=== PATIENT | female | born 1990 | race Hispanic/Latino ===

== ENCOUNTER 2023-10-11 06:38 | Inpatient (IN) | payer MEDICAID, OTHER ==
[2023-10-11 08:24] VITALS: BMI 40.3
[2023-10-11] MEDS ORDERED: hydrALAZINE 20 MG/ML VIAL SLOW IVP PRN ×2 (08:26→14:27)
[2023-10-11] MEDS ORDERED: Tranexamic Acid 1,000 MG/10 ML VIAL IVP PRN (08:26)
[2023-10-11] MEDS ORDERED: Ibuprofen 800 MG TAB PO PRN (08:26)
[2023-10-11] MEDS ORDERED: Methylergonovine 0.2 MG/ML VIAL IM PRN (08:26)
[2023-10-11] MEDS ORDERED: Lactated Ringer's 1,000 ML IV SCH (08:26)
[2023-10-11] MEDS ORDERED: Diphenoxylate HCl/Atropine Tablet PO PRN (08:26)
[2023-10-11] MEDS ORDERED: fentaNYL 50 mcg/mL 1 mL Vial SLOW IVP PRN (08:26)
[2023-10-11] MEDS ORDERED: HYDROcodone/Acetaminophen 5/325 mg Tablet PO PRN ×2 (08:26→14:27)
[2023-10-11] MEDS ORDERED: Promethazine HCl 25 MG/ML VIAL IM PRN ×2 (08:26→14:27)
[2023-10-11] MEDS ORDERED: Carboprost 250 MCG/ML AMP IM PRN (08:26)
[2023-10-11] MEDS ORDERED: Misoprostol 200 MCG TAB PR PRN (08:26)
[2023-10-11] MEDS ORDERED: Lidocaine 1% (PF) 30 ML VIAL SC PRN (08:26)
[2023-10-11] MEDS ORDERED: Ondansetron PF 4 MG/2 ML Vial IVP PRN ×2 (08:26→14:27)
[2023-10-11] MEDS ORDERED: Oxytocin 30 units/NS 500 ML 500 ML IV SCH ×3 (08:26)
[2023-10-11] MEDS ORDERED: Acetaminophen 500 MG TAB PO PRN (08:26)
[2023-10-11 09:00] LABS: Hematocrit 39.3 % (34.9-44.5); Hemoglobin 13.2 g/dL (12.0-15.5); Mean Corpuscular HGB CONC 33.6 g/dL (32.0-36.0); Mean Corpuscular Hemoglobin 28.6 pg (27.0-33.0); Mean Corpuscular Volume 85.1 fl (81.6-98.3); Mean Platelet Volume 11.4 fl (7.4-10.4); Platelet Count 217 10x3/uL (150-450); RBC Distribution Width 16.6 % (11.5-14.5); Red Blood Cell (RBC) Count 4.62 10x6/uL (3.90-5.03); White Blood Cell (WBC) Count 9.3 10x3/uL (3.5-10.5)
[2023-10-11 09:14] LABS: Syphilis Antibody Nonreactive (Nonreactive)
[2023-10-11 09:16] LABS: HBSAg Index 0.22 S/CO (0-0.99); Hep B Surf Ag - L&D Non-Reactive S/CO (NonReactive)
[2023-10-11] MEDS ORDERED: Lidocaine 1% (PF) 30 ML VIAL ONE (11:30)
[2023-10-11] MEDS ORDERED: Milk Of Magnesia 30 ML UDCUP PO PRN (14:27)
[2023-10-11] MEDS ORDERED: diphenhydrAMINE 25 MG CAP PO PRN (14:27)
[2023-10-11] MEDS ORDERED: Lanolin Ointment 7 GM TUBE TOP PRN (14:27)
[2023-10-11] MEDS ORDERED: Benzocaine-Menthol 82.5 ML CAN TOP PRN (14:27)
[2023-10-11] MEDS ORDERED: Boostrix 0.5 ML (Tdap) VIAL (>/=7 yrs of age) IM ONE (14:27)
[2023-10-11] MEDS ORDERED: Bisacodyl 10 MG SUPP PR PRN (14:27)
[2023-10-11] MEDS: Ibuprofen 800 MG TAB PO SCH (16:26)
[2023-10-11] MEDS: Ferrous Sulfate 325 MG TAB PO SCH (16:27)
[2023-10-11] MEDS: Docusate 100 MG CAP PO SCH (21:07)
[2023-10-12] MEDS ORDERED: Ibuprofen 800 MG TAB PO SCH (00:01)
[2023-10-12] MEDS: Ibuprofen 800 MG TAB PO SCH (01:23)
[2023-10-12 07:26] VITALS: TEMP 98
[2023-10-12] MEDS: Prenatal Vitamin 1 TAB PO SCH (09:06)
[2023-10-12 11:01] VITALS: BP 112/61
== END 2023-10-12 15:25 | disposition home or self-care (01) | DRG 807 ==
LOC: CSHLD 06:38 → CSHPP 14:03
PROVIDERS: ADMIT Family Medicine; ATTEND Family Medicine
PROC: 10E0XZZ Delivery of Products of Conception, External Approach (ICD-10-PCS; principal; 2023-10-11)
PROC: 0KQM0ZZ Repair Perineum Muscle, Open Approach (ICD-10-PCS; 2023-10-11)
PROC: 10907ZC Drainage of Amniotic Fluid, Therapeutic from Products of Conception, Via Natural or Artificial Opening (ICD-10-PCS; 2023-10-11)
DX: O48.0 Post-term pregnancy (principal); Z37.0 Single live birth; Z3A.40 40 weeks gestation of pregnancy; O70.1 Second degree perineal laceration during delivery; Z79.82 Long term (current) use of aspirin
CPT/HCPCS: 36415; 85027; 86780; 86850; 86900; 86901; 87340

== ENCOUNTER 2025-07-24 05:26 | Inpatient (IN) | payer MEDICAID ==
[2025-07-24 07:07] VITALS: BMI 38.2
[2025-07-24] MEDS ORDERED: Ibuprofen 800 MG TAB PO PRN (07:25)
[2025-07-24] MEDS ORDERED: hydrALAZINE 20 MG/ML VIAL SLOW IVP PRN ×2 (07:25→14:36)
[2025-07-24] MEDS ORDERED: Oxytocin 30 units/NS 500 ML 500 ML IV SCH (07:25)
[2025-07-24] MEDS ORDERED: Tranexamic Acid 1,000 MG/10 ML VIAL IVP PRN (07:25)
[2025-07-24] MEDS ORDERED: Diphenoxylate HCl/Atropine Tablet PO PRN (07:25)
[2025-07-24] MEDS ORDERED: Acetaminophen 500 MG TAB PO PRN (07:25)
[2025-07-24] MEDS ORDERED: Lidocaine 1% (PF) 30 ML VIAL SC PRN (07:25)
[2025-07-24] MEDS ORDERED: Ondansetron PF 4 MG/2 ML Vial IVP PRN ×2 (07:25→14:36)
[2025-07-24] MEDS ORDERED: HYDROcodone/Acetaminophen 5/325 mg Tablet PO PRN ×2 (07:25→14:36)
[2025-07-24] MEDS ORDERED: Carboprost 250 MCG/ML AMP IM PRN (07:25)
[2025-07-24] MEDS ORDERED: Methylergonovine 0.2 MG/ML VIAL IM PRN (07:25)
[2025-07-24] MEDS: Oxytocin 30 units/NS 500 ML 500 ML IV SCH (07:48)
[2025-07-24] MEDS: Penicillin G Potassium 5 MILL.UNITS VIAL ONE (07:48)
[2025-07-24] MEDS ORDERED: Penicillin G Potassium 5 MILL.UNITS in Sodium Chloride 0.9% 100 ML IVPB SCH (08:15)
[2025-07-24 08:20] LABS: Hematocrit 42.3 % (34.9-44.5); Hemoglobin 13.9 g/dL (12.0-15.5); Mean Corpuscular Hemoglobin 28.7 pg (27.0-33.0); Mean Corpuscular Volume 87.2 fL (81.6-98.3); Platelet Count 167 10x3/uL (150-450); Red Blood Cell (RBC) Count 4.85 10x6/uL (3.90-5.03); White Blood Cell (WBC) Count 7.54 10x3/uL (3.5-10.5)
[2025-07-24 08:51] LABS: Syphilis Antibody Index 0.06 S/CO (<1.00 Non-Reactive)
[2025-07-24 08:56] LABS: Hep B Surf Ag - L&D Non-Reactive S/CO (NonReactive)
[2025-07-24] MEDS: Penicillin G 2.5 MILL.units 2.5 MILL.UNITS in Premix 1 BAG IVPB SCH (11:34)
[2025-07-24] MEDS: Lidocaine 1% (PF) 30 ML VIAL SC PRN (11:52)
[2025-07-24] MEDS ORDERED: Preparation H Ointment 28 GM TUBE PR PRN (14:36)
[2025-07-24] MEDS ORDERED: Lanolin Ointment 7 GM TUBE TOP PRN (14:36)
[2025-07-24] MEDS ORDERED: diphenhydrAMINE 25 MG CAP PO PRN (14:36)
[2025-07-24] MEDS ORDERED: Bisacodyl 10 MG SUPP PR PRN (14:36)
[2025-07-24] MEDS ORDERED: Milk Of Magnesia 30 ML UDCUP PO PRN (14:36)
[2025-07-24] MEDS ORDERED: Benzocaine-Menthol 82.5 ML CAN TOP PRN (14:36)
[2025-07-24] MEDS: Oxytocin 30 units/NS 500 ML 500 ML ONE (14:45)
[2025-07-24] MEDS: Ibuprofen 800 MG TAB PO SCH (16:19)
[2025-07-24] MEDS: Ferrous Sulfate 325 MG TAB PO SCH (16:20)
[2025-07-25 12:03] VITALS: BP 109/69; TEMP 97.7
== END 2025-07-25 15:15 | disposition home or self-care (01) | DRG 807 ==
LOC: CSHLD 05:26 → CSHPP 14:15
PROVIDERS: ADMIT Family Medicine; ATTEND Family Medicine
PROC: 10E0XZZ Delivery of Products of Conception, External Approach (ICD-10-PCS; principal; 2025-07-24)
PROC: 0KQM0ZZ Repair Perineum Muscle, Open Approach (ICD-10-PCS; 2025-07-24)
PROC: 4A1HXCZ Monitoring of Products of Conception, Cardiac Rate, External Approach (ICD-10-PCS; 2025-07-24)
DX: O48.0 Post-term pregnancy (principal); Z37.0 Single live birth; O70.1 Second degree perineal laceration during delivery; Z3A.40 40 weeks gestation of pregnancy
CPT/HCPCS: 85027; 86780; 86850; 86900; 86901; 87340; J2003; J2540; J2590; J7120